=== PATIENT | female | born 1980 | race Caucasian/White ===

== ENCOUNTER 2017-10-30 00:17 | Inpatient (IN) | payer OTHER ==
[~2017-10-30] VITALS: Ht 172.7 cm; Wt 103.5 kg
[~2017-10-30 00:17] MED LIST: HYDR-3533 PO; IBUP600 PO; INDO50CA PO; PERC10TA27 PO
[2017-10-30 00:38] VITALS: BP 141/75; PULSE 95; RESP 18; TEMP 98.4; O2SAT 97
[2017-10-30] MEDS ORDERED: MORPHINE SULFATE 4 MG/ML INJ IV PUSH ONE ×2 (01:30→08:30)
[2017-10-30] MEDS ORDERED: VANCOMYCIN INJ 1,000 MG in SODIUM CHLOR 0.9% 250 ML INJ 250 ML IV ONE (01:30)
[2017-10-30] MEDS ORDERED: PIPERACIL-TAZO 3.375 GM PREMIX 50 ML IV ONE (01:30)
[2017-10-30 02:57] LABS: BASOPHIL % 0.4 % (0.0-2.0); EOSINOPHIL # 0.1 TH/MM3 (0-0.4); EOSINOPHIL % 1.4 % (0.0-4.0); HEMATOCRIT 39.1 % (35.0-46.0); HEMOGLOBIN 13.1 GM/DL (11.6-15.3); LYMPH % 20.1 % (9.0-44.0); LYMPHOCYTE # 1.9 TH/MM3 (1.0-4.8); MEAN CELL VOLUME 85.5 FL (80.0-100.0); MEAN CORPUSCULAR HEMOGLOBIN 28.7 PG (27.0-34.0); MEAN CORPUSCULAR HGB CONC 33.6 % (32.0-36.0); MEAN PLATELET VOLUME 8.4 FL (7.0-11.0); MONO % 5.1 % (0.0-8.0); MONOCYTE # 0.5 TH/MM3 (0-0.9); PLATELET COUNT 233 TH/MM3 (150-450); RED BLOOD COUNT 4.58 MIL/MM3 (4.00-5.30); RED CELL DISTRIBUTION WIDTH 13.6 % (11.6-17.2); WHITE BLOOD COUNT 9.5 TH/MM3 (4.0-11.0)
[2017-10-30 03:18] LABS: ALBUMIN 3.6 GM/DL (3.4-5.0); AST (GOT) 19 U/L (15-37); BICARBONATE 27.8 MEQ/L (21.0-32.0); BLOOD UREA NITROGEN 11 MG/DL (7-18); CALCIUM 8.7 MG/DL (8.5-10.1); CHLORIDE 106 MEQ/L (98-107); CREATININE 0.89 MG/DL (0.50-1.00); GLOMERULAR FILTRATION RATE 71 ML/MIN (>89); GLUCOSE,RANDOM 126 MG/DL (74-106); SODIUM (NA) 140 MEQ/L (136-145)
[2017-10-30 03:21] LABS: ALKALINE PHOSPHATASE 78 U/L (45-117); ALT (GPT) 32 U/L (10-53); TOTAL BILIRUBIN ADULT 0.3 MG/DL (0.2-1.0); TOTAL PROTEIN 8.4 GM/DL (6.4-8.2)
--- NOTE | 2017-10-30 03:32 | PD ---
HPI Chief Complaint: Skin Problem Time Seen by Provider: :18 Travel History International Travel<30 days: No Contact w/Intl Traveler<30days: No Traveled to known affect area: No History of Present Illness HPI Patient is a 37 year old female who comes in due to pain and swelling to her right hand. She says she has had some pain to this hand for the past 3 weeks. She says that originally she thought maybe it was a gout flare. She says that recently it has gotten much worse, more painful and more swollen. She has history of IVDA and recently relapsed, injecting herself in the area of the right hand. She denies fever or chills. She went to an OSH where she had a CT done showing an abscess and likely osteomyelitis. Severity is moderate. PFSH Past Medical History Cancer: No Cardiovascular Problems: No Diminished Hearing: No Gout: Yes (ARTHRITC) Hepatitis: Yes (C) Neurologic: No Psychiatric: No Reproductive: No Respiratory: No Immunizations Current: Yes ?: Not LMP: 10/30/17 : 2 Para: 2 Miscarriage: 1 : 1 Past Surgical History Abdominal Surgery: No Cardiac Surgery: No Genitourinary Surgery: No Gynecologic Surgery: No Thoracic Surgery: No Social History Alcohol Use: No Tobacco Use: Yes (1/2 PPD) Substance Use: Yes (COCAINE, PAIN MEDS) Allergies-Medications (Allergen,Severity, Reaction): Coded Allergies: No Known Allergies (Unverified Adverse Reaction, Unknown, 10/30/17) Reported Meds & Prescriptions Reported Meds & Active Scripts Active Percocet 10/325 (Oxycodone/Acetaminophen) Oxycodone 10/325 Acetaminophen Tab 0.5 -1 Tab PO Q4H PRN Indocin (Indomethacin) 50 Mg Cap 50 Mg PO TID Lortab 5 mg/325 mg (Hydrocodone/Acetaminophen 5 mg/325 mg) 1 Tab 1 Tab PO Q6H PRN Motrin 600 Mg Tab (Ibuprofen) 600 Mg Tab 600 Mg PO Q6H PRN Review of Systems Except as stated in HPI: all other systems reviewed are Neg General / Constitutional: No: Fever, Chills HENT: No: Headaches, Lightheadedness Cardiovascular: No: Chest Pain or Discomfort Respiratory: No: Shortness of Breath Gastrointestinal: No: Nausea, Vomiting Musculoskeletal: Positive: Edema, Pain Skin: Positive Change in Pigmentation, No Rash Neurologic: No: Weakness, Dizziness Physical Exam Narrative GENERAL: Awake and alert, in no acute distress. SKIN: Large swelling to the right hand with erythema and warmth of the entire dorsal surface of the right hand. HEAD: Atraumatic. Normocephalic. EYES: Pupils equal and round. No scleral icterus. ENT: Mucous membranes pink and moist. NECK: Trachea midline. No JVD. CARDIOVASCULAR: Regular rate and rhythm. No murmur appreciated. RESPIRATORY: No accessory muscle use. Clear to auscultation. Breath sounds equal bilaterally. MUSCULOSKELETAL: No obvious deformities. No clubbing. No cyanosis. No edema. NEUROLOGICAL: Awake and alert. No obvious cranial nerve deficits. Motor grossly within normal limits. Normal speech. PSYCHIATRIC: Appropriate mood and affect; insight and judgment normal. Data Data Last Documented VS Vital Signs Date Time Temp Pulse Resp B/P (MAP) Pulse Ox O2 Delivery O2 Flow Rate FiO2 10/30/17 00:38 98.4 95 18 141/75 (97) 97 Orders Orders Iv Access Insert/Monitor (10/30/17 01:28) Complete Blood Count With Diff (10/30/17 01:28) Comprehensive Metabolic Panel (10/30/17 01:28) Westergren Sedimentation Rate (10/30/17 01:28) Mri Hand W&W/O Contrast (10/30/17 ) Blood Culture (10/30/17 01:28) Vancomycin Inj (Vancomycin Inj) (10/30/17 01:30) Piperacil-Tazo 3.375 Gm Premix (Zosyn 3. (10/30/17 01:30) Morphine Inj (Morphine Inj) (10/30/17 01:30) Labs Laboratory Tests Test 10/30/17 02:30 White Blood Count 9.5 TH/MM3 Red Blood Count 4.58 MIL/MM3 Hemoglobin 13.1 GM/DL Hematocrit 39.1 % Mean Corpuscular Volume 85.5 FL Mean Corpuscular Hemoglobin 28.7 PG Mean Corpuscular Hemoglobin Concent 33.6 % Red Cell Distribution Width 13.6 % Platelet Count 233 TH/MM3 Mean Platelet Volume 8.4 FL Neutrophils (%) (Auto) 73.0 % Lymphocytes (%) (Auto) 20.1 % Monocytes (%) (Auto) 5.1 % Eosinophils (%) (Auto) 1.4 % Basophils (%) (Auto) 0.4 % Neutrophils # (Auto) 7.0 TH/MM3 Lymphocytes # (Auto) 1.9 TH/MM3 Monocytes # (Auto) 0.5 TH/MM3 Eosinophils # (Auto) 0.1 TH/MM3 Basophils # (Auto) 0.0 TH/MM3 CBC Comment DIFF FINAL Differential Comment Blood Urea Nitrogen 11 MG/DL Creatinine 0.89 MG/DL Random Glucose 126 MG/DL Albumin 3.6 GM/DL Calcium Level 8.7 MG/DL Aspartate Amino Transf (AST/SGOT) 19 U/L Sodium Level 140 MEQ/L Potassium Level 3.6 MEQ/L Chloride Level 106 MEQ/L Carbon Dioxide Level 27.8 MEQ/L Anion Gap 6 MEQ/L Estimat Glomerular Filtration Rate 71 ML/MIN [facility] Medical Decision Making Medical Screen Exam Complete: Yes Emergency Medical Condition: Yes Medical Record Reviewed: Yes Differential Diagnosis abscess vs cellulitis vs osteomyelitis Narrative Course Patient is a 37 year old female who comes in complaining of pain and swelling to her right hand. Exam shows large swelling and erythema to the dorsal surface of the right hand. CT from [facility] shows: "Extensive cellulitis of the wrist and hand. Several foci of gas within the subcutaneous tissue of the distal forearm. 1.9 x 3.2 x 4.7 cm abscess posterior aspect of the hand level of the fifth metacarpal. Suspected 3 x 5 cm area of low attenuation surrounding the proximal carpal row suspicious for phlegmon. Suspected multifocal osteomyelitis involving the carpal bones, most pronounced within the lunate. IV established, labs sent. Given IV antibiotics. I spoke with Dr. Jean-Baptiste who suggests admission, NPO after breakfast for OR tomorrow. MRI ordered for AM. Will be admitted for further management. Diagnosis Primary Impression: Cellulitis and abscess of hand Additional Impression: Osteomyelitis Qualified Codes: M86.9 - Osteomyelitis, unspecified Admitting Information Admitting Physician Requests: Admit Temitope Roque MD Oct 30, 2017 03:32
[2017-10-30 04:51] VITALS: BP 145/66; PULSE 74; RESP 18; TEMP 98; O2SAT 99
[2017-10-30] MEDS ORDERED: GADODIAMIDE PF 287 MG/ML 20 ML VIAL (for RAD MRI) IVCONTRAST ONE (07:50)
[2017-10-30] MEDS ORDERED: MORPHINE SULFATE 4 MG/ML INJ IV PUSH PRN (08:30)
[2017-10-30] MEDS ORDERED: ONDANSETRON ODT 4 MG TAB PO PRN (08:30)
[2017-10-30] MEDS ORDERED: ACETAMINOPHEN 325 MG TAB PO PRN (08:30)
[2017-10-30] MEDS ORDERED: VANCOMYCIN INJ 1,000 MG in SODIUM CHLOR 0.9% 250 ML INJ 250 ML IV SCH (08:30)
--- NOTE | 2017-10-30 08:38 | RADRPT ---
EXAM DATE: 10/30/2017 8:10 AM EDT AGE/SEX: 37 years / Female INDICATIONS: Abscess. CLINICAL DATA: This is the patient's initial encounter. Patient reports that signs and symptoms have been present for 2 days and indicates a pain score of 5/10. MEDICAL/SURGICAL HISTORY: None. . Knee surgery. COMPARISON: No prior exams available for comparison. TECHNIQUE: Multiplanar, multisequence MRI examination was performed without contrast and after the i ntravenous administration of 20cc ml Omniscan (gadodiamide) contrast as a single exam dose. FINDINGS: The patient moved during acquisition of the axial postcontrast enhanced T1-weighted images . There is diffusely in the subcutaneous edema. On the medial/ulnar aspect of the hand adjacent to the fifth metacarpal is a subcutaneous fluid collection containing enhancing septations and demonstrating peripheral enhancement. This abnormality measures approximately 4.8 x 2.4 x 5.0 cm. It is superficia l to the extensor tendons but does abut the extensor tendons adjacent to the fifth metacarpal. The hy perthenar muscle also demonstrates edema and enhancement. The bone marrow within the metacarpals and proximal phalanges are within normal limits. The bone karen ow signal is abnormal within the distal radius, lunate, scaphoid, and triquetral bone. There is abnor mal linear low density structure in the distal radius suggesting distal radial metaphyseal fracture. Therefore, the edema and enhancement within the adjacent carpal bones could be related to a traumatic injury. There is mild ulnar positive variance. CONCLUSION: 1. There is a rim-enhancing septated fluid collection in the subcutaneous fat of the medial/ulnar as pect of the hand. It measures 4.8 x 2.4 x 5.0 cm and has imaging features characteristic of an absces s. It is superficial to the extensor tendons but does abut the extensor tendon adjacent to the fifth metacarpal. The fifth metacarpal demonstrates normal signal without findings to indicate osteomyeliti s. There is abnormal edema and enhancement in the adjacent hyperthenar muscle. 2. Changes in the distal radius characteristic of a fracture. There is also edema and enhancement wi thin the proximal row carpal bones which is nonspecific but could be related to a traumatic injury. C onsider correlating with plain film examination. Electronically signed by: Adam Biggs MD 10/30/2017 8:37 AM EDT
[2017-10-30] MEDS ORDERED: SODIUM CHLOR 0.9% 1000 ML INJ 1,000 ML IV SCH (09:00)
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
[2017-10-30] MEDS ORDERED: Vancomycin Consult Pharmacy 1 EA OTHER SCH (09:30)
[2017-10-30] MEDS: PIPERACIL-TAZO 3.375 GM PREMIX 50 ML IV SCH ×3 (09:32→22:07)
[2017-10-30] MEDS: VANCOMYCIN 1,500 MG/NS 500 ML IV SCH ×4 (10:26→23:44)
[2017-10-30] MEDS ORDERED: PROPOFOL 200 MG/20 ML AMP IV ONE (12:00)
[2017-10-30] MEDS ORDERED: LIDOCAINE HCL 1% PF 5 ML SYRINGE OTHER ONE (12:00)
[2017-10-30] MEDS ORDERED: NEOMYCIN/POLYMYXIN 1 ML G.U. IRRIGANT ONE (12:10)
[2017-10-30 12:17] VITALS: BP 136/77; PULSE 63; RESP 16; TEMP 98.2; O2SAT 100
--- NOTE | 2017-10-30 13:01 | MB ---
cc: Jeffry Jean-Baptiste MD DATE: 10/30/2017 HISTORY OF PRESENT ILLNESS: The patient is a 37-year-old female who came in with pain and swelling of the right hand for about 2 weeks. She relapsed and was injecting Dilaudid. She does have a recent history of breaking her distal radius and was seen and treated at [place]. PAST MEDICAL HISTORY: Gout and hepatitis C. PAST SURGICAL HISTORY: Denies. SOCIAL HISTORY: She smokes tobacco, has used illicit substances. ALLERGIES: NO KNOWN DRUG ALLERGIES. MEDICATION AT HOME: Allopurinol. REVIEW OF SYSTEMS: The patient is not complaining of any fevers or chills. She is not complaining of headaches or lightheadedness. She is not complaining of any chest pain or palpitations. She is not complaining of any coughing, wheezing or shortness of breath. She is not complaining of any nausea, vomiting or diarrhea. She is not complaining of any skin lesions, rashes or eruptions, except for the right hand. She is not complaining of any weakness, dizziness, numbness or tingling. She is not complaining of any night sweats, fevers or chills. She is not complaining of any anxiety, depression, or suicidal ideations. LABORATORY DATA: MRI was reviewed. Laboratory studies revealed a white blood cell count of 9.5000, hemoglobin 13.1 g/dL, platelet count of 233,000. BUN and creatinine 11 and 0.89. PHYSICAL EXAMINATION: GENERAL: Well-developed, well-nourished, in no apparent distress. VITAL SIGNS: Temperature is 98.0, heart rate 74, respiratory rate 18, blood pressure 145/66, pulse oximetry 99% on room air. NEUROLOGIC: She is awake, alert and oriented x3, very pleasant. RESPIRATORY: Respiratory effort is normal. EXTREMITIES: Examination of right upper extremity reveals a very edematous and erythematous hand. All surfaces are soft. She is neurovascularly intact throughout. There is a large abscess dorsally. There is the slightest suggestion of lymphangitic streaking proximally on the forearm. There is no epitrochlear adenopathy. IMPRESSION: Cellulitis and abscess, right hand. PLAN: To go to the operating room for drainage of this. I discussed this with the patient. She eagerly requests that we proceed. Jeffry Daniela Jean-Baptiste MD LCB/TL , 11:52 AM , 01:00 PM
[2017-10-30] MEDS ORDERED: *morphine SULFATE 4 MG/ML PERIprocedure ONLY ONE (13:48)
[2017-10-30] MEDS ORDERED: MIDAZOLAM HCL 2 MG/2 ML VIAL ONE (13:50)
[2017-10-30] MEDS ORDERED: SODIUM CHLORIDE FLUSH PRN IV FLUSH (14:15)
--- NOTE | 2017-10-30 14:46 | MP ---
cc: Jeffry Jean-Baptiste MD DATE OF OPERATION: PREOPERATIVE DIAGNOSIS: Right hand abscess. PROCEDURE PERFORMED: Right hand incision and drainage. SURGEON: Jeffry Jean-Baptiste III, MD PROCEDURE: The patient was brought to the operating room and placed supine on the operating table. After the correct site and side of surgery were verified by members of each team in the room multiple times including the patient and myself, and after adequate general anesthesia was achieved, the right upper extremity was prepped and draped in traditional sterile surgical fashion. An incision was made over the point of maximal fluctuance on the dorsal aspect of the right hand. Cultures were obtained after a large amount of pus was encountered. The wound was explored. There was no infected rind or anything necrotic within the wound. It was then irrigated in a pulsatile fashion with saline and then medicated packing. The hand and arm were thoroughly cleansed and dried. Sterile circumferential dressing was applied. The patient was awakened from anesthesia and transported to the postanesthesia care unit awake and in stable condition at the end of the case. Sponge, needle and instrument counts were correct at the end of the case as reported by the nurses in the room. Jeffry Jean-Baptiste MD LCB/TL , 01:38 PM , 02:45 PM
[2017-10-30] MEDS ORDERED: DO NOT ADM ANY ANTICOAGULANT DRUGS PRN (15:00)
--- NOTE | 2017-10-30 15:56 | RADRPT ---
EXAM DATE: 10/30/2017 3:28 PM EDT AGE/SEX: 37 years / Female INDICATIONS: Fracture. Pain and swelling on dorsal surface of hand and wrist. CLINICAL DATA: This is the patient's subsequent encounter. Patient reports that signs and symptoms h ave been present for 1 day and indicates a pain score of 5/10. MEDICAL/SURGICAL HISTORY: None. . Knee surgery. COMPARISON: No prior exams available for comparison. FINDINGS: There is prominent soft tissue swelling about the dorsal medial aspect of the hand. There is also gau ze about the hand with multiple metallic safety pins and Cly[place] bandage clamps in place. The osseous str uctures of the hand are normal alignment. No evidence of fracture, dislocation or periosteal reaction . In lateral projection, there is questionable posterior displacement of the distal ulna. Radiocarpal alignment is maintained. CONCLUSION: 1. Prominent soft tissue swelling about the dorsal medial aspect of the hand without radiopaque fore ign body. 2. Osseous structures of the hand appear grossly intact. 3. Possible dorsal dislocation of the ulna. Electronically signed by: Yves Ardon MD 10/30/2017 3:55 PM EDT
[2017-10-30] MEDS: ACETAMINOPHEN/HYDROcodone 325 MG/7.5 MG TAB PO PRN (17:42)
[2017-10-30 17:59] VITALS: BP 128/63; PULSE 80; RESP 20; TEMP 97.9; O2SAT 98
[2017-10-30] MEDS: SODIUM CHLORIDE FLUSH BID IV FLUSH SCH (22:08)
[2017-10-30] MEDS ORDERED: MORPHINE SULFATE 4 MG/ML INJ IV ONE (23:15)
[2017-10-30 23:49] VITALS: BP 130/71; PULSE 62; RESP 19; O2SAT 98
[2017-10-31 03:14] VITALS: BP 128/74; PULSE 61; RESP 20; TEMP 98.4; O2SAT 98
[2017-10-31 04:33] VITALS: BP 123/80; PULSE 70; RESP 16; TEMP 98.8; O2SAT 99
[2017-10-31] MEDS: PIPERACIL-TAZO 3.375 GM PREMIX 50 ML IV SCH ×2 (05:30→08:15)
[2017-10-31] MEDS: ACETAMINOPHEN/HYDROcodone 325 MG/7.5 MG TAB PO PRN ×2 (08:16→21:03)
[2017-10-31] MEDS: SODIUM CHLORIDE FLUSH BID IV FLUSH SCH ×2 (08:16→22:56)
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
[2017-10-31 09:42] VITALS: BP 138/79; PULSE 75; RESP 18; TEMP 98.7; O2SAT 97
[2017-10-31] MEDS: VANCOMYCIN 1,500 MG/NS 500 ML IV SCH ×4 (10:59→22:55)
[2017-10-31 11:43] LABS: AUTOMATED NEUTROPHIL # 4.7 TH/MM3 (1.8-7.7); BASOPHIL % 0.3 % (0.0-2.0); EOSINOPHIL # 0.1 TH/MM3 (0-0.4); EOSINOPHIL % 1.5 % (0.0-4.0); HEMATOCRIT 34.9 % (35.0-46.0); HEMOGLOBIN 11.5 GM/DL (11.6-15.3); LYMPH % 22.4 % (9.0-44.0); LYMPHOCYTE # 1.5 TH/MM3 (1.0-4.8); MEAN CELL VOLUME 84.7 FL (80.0-100.0); MEAN CORPUSCULAR HEMOGLOBIN 27.9 PG (27.0-34.0); MEAN PLATELET VOLUME 8.9 FL (7.0-11.0); MONO % 3.9 % (0.0-8.0); MONOCYTE # 0.3 TH/MM3 (0-0.9); NEUT % 71.9 % (16.0-70.0); PLATELET COUNT 234 TH/MM3 (150-450); RED BLOOD COUNT 4.12 MIL/MM3 (4.00-5.30); RED CELL DISTRIBUTION WIDTH 13.4 % (11.6-17.2); WHITE BLOOD COUNT 6.6 TH/MM3 (4.0-11.0)
[2017-10-31 11:57] LABS: BICARBONATE 26.1 MEQ/L (21.0-32.0); CALCIUM 8.8 MG/DL (8.5-10.1); CREATININE 0.96 MG/DL (0.50-1.00)
--- NOTE | 2017-10-31 12:13 | HHI.PR ---
Subjective Remarks pt comfortable Objective Vital Signs Date Time Temp Pulse Resp B/P (MAP) Pulse Ox O2 Delivery O2 Flow Rate FiO2 10/31/17 09:42 98.7 75 18 138/79 (98) 97 10/31/17 04:33 98.8 70 16 123/80 (94) 99 10/31/17 03:14 98.4 61 20 128/74 (92) 98 10/30/17 23:49 62 19 130/71 (90) 98 10/30/17 17:59 97.9 80 20 128/63 (84) 98 10/30/17 13:45 97.6 67 16 134/81 (98) 99 Room Air 10/30/17 13:37 97.6 65 16 123/64 (83) 100 10/30/17 12:17 98.2 63 16 136/77 (96) 100 I/O 10/30/17 10/30/17 10/30/17 10/31/17 10/31/17 10/31/17 07:00 15:00 23:00 07:00 15:00 23:00 Intake Total 300 ml 300 ml Output Total 5 ml Balance 300 ml 295 ml Intake IV Total 300 ml 300 ml Output Estimated Blood Loss 5 ml # Voids 1 Result Diagram: 10/31/17 1100 10/31/17 1100 Objective Remarks examination of the right hand reveals redness and swelling has gone down dramatically; AROM only 25% normal, which is an improvement no purulence on packing NVI throughout Assessment and Plan Problem List: (1) Cellulitis and abscess of hand ICD Codes: L03.119 - Cellulitis of unspecified part of limb; L02.519 - Cutaneous abscess of unspecified hand Status: Acute Plan: begin packing changes as ordered continue elevation of right hand 24/7 exercise fingers every hour continue IV abx, await cultures Jeffry Jean-Baptiste III, MD Oct 31, 2017 12:13
[2017-10-31] MEDS: MORPHINE SULFATE 4 MG/ML INJ IV PUSH PRN (12:20)
[2017-10-31] MEDS ORDERED: POTASSIUM CHLORIDE 20 MEQ CONTROLLED RELEASE TAB PO ONE (12:30)
[2017-10-31 13:57] VITALS: BP 131/64; PULSE 76; RESP 15; TEMP 97.8; O2SAT 97
[2017-10-31 20:00] VITALS: BP 130/82; PULSE 77; RESP 16; TEMP 97.9; O2SAT 99
[2017-10-31] MEDS ORDERED: PHARMACY ORDERED LAB ONE (23:45)
[2017-11-01] VITALS: BP 122/71; PULSE 68; RESP 18; TEMP 98.1; O2SAT 97
[2017-11-01] MEDS: MORPHINE SULFATE 4 MG/ML INJ IV PUSH PRN ×2 (00:05→10:26)
[2017-11-01 04:00] VITALS: BP 114/64; PULSE 59; RESP 18; TEMP 97.7; O2SAT 98
[2017-11-01] MEDS: ACETAMINOPHEN/HYDROcodone 325 MG/7.5 MG TAB PO PRN (06:09)
[2017-11-01 08:11] VITALS: BP 131/90; PULSE 63; RESP 18; TEMP 98.1; O2SAT 98
[2017-11-01] MEDS ORDERED: PHARMACY ORDERED LAB ONE (09:45)
[2017-11-01] MEDS: SODIUM CHLORIDE FLUSH BID IV FLUSH SCH (10:24)
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
[2017-11-01] MEDS ORDERED: BACT800T5 PO (11:58)
[2017-11-01] MEDS ORDERED: SULFAMETHOXAZOLE-TRIMETHOPRIM DS 800-160 MG TAB PO SCH (12:00)
[2017-11-01] MEDS ORDERED: HYDR-3580 PO (12:02)
--- NOTE | 2017-11-01 12:04 | HHI.FF ---
Face to Face Verification Diagnosis: (1) Cellulitis and abscess of hand (2) Distal radius fracture, right (3) Hepatitis C Home Health Nursing Order: Wound care and dressing changes Nursing assessment with vital signs Instructions: Wound care instructions: Change packing to right hand with plain packing. Change [id number]. Cover with ABD & wrap with cling gauze. Please draw a CBC and CMP on 11/08/17, with results to Dr. Mo Berry I have seen patient Cassandra Hough on 11/01/17. My clinical findings support the need for the requested home health care services because: Infection w/ risk of complications I certify that my clinical findings support that this patient is homebound because: Post-op weakness Carol Ann Reed Nov 01, 2017 12:04 Ramos White DO Nov 01, 2017 15:29
--- NOTE | 2017-11-01 12:05 | HHI.DCPOC ---
Discharge Care Plan Diagnosis: (1) Distal radius fracture, right (2) Cellulitis and abscess of hand (3) Hepatitis C Goals to Promote Your Health * To prevent worsening of your condition and complications * To maintain your health at the optimal level Directions to Meet Your Goals Take your medications as prescribed Follow your dietary instruction Follow activity as directed Keep your appointments as scheduled Take your immunizations and boosters as scheduled If your symptoms worsen call your PCP, if no PCP go to Urgent Care Center or Emergency Room Smoking is Dangerous to Your Health. Avoid second hand smoke Call the 24-hour hour crisis hotline for domestic abuse at Carol Ann Reed Nov 01, 2017 12:05
--- NOTE | 2017-11-01 12:08 | HHI.PR ---
Subjective Remarks pt comfortable Objective Vital Signs Date Time Temp Pulse Resp B/P (MAP) Pulse Ox O2 Delivery O2 Flow Rate FiO2 11/01/17 08:11 98.1 63 18 131/90 (104) 98 11/01/17 04:00 97.7 59 18 114/64 (81) 98 11/01/17 00:00 98.1 68 18 122/71 (88) 97 10/31/17 20:00 97.9 77 16 130/82 (98) 99 10/31/17 13:57 97.8 76 15 131/64 (86) 97 I/O 10/31/17 10/31/17 10/31/17 11/01/17 11/01/17 11/01/17 07:00 15:00 23:00 07:00 15:00 23:00 Intake Total 755 ml Balance 755 ml Intake Oral 240 ml IV Total 515 ml # Voids 5 # Bowel Movements 0 Result Diagram: 10/31/17 1100 10/31/17 1100 Objective Remarks examination of the right hand reveals redness and swelling resolved; AROM is almost full; no cellulitis or edema wound is clean NVI throughout Assessment and Plan Problem List: (1) Cellulitis and abscess of hand ICD Codes: L03.119 - Cellulitis of unspecified part of limb; L02.519 - Cutaneous abscess of unspecified hand Status: Acute Plan: continue packing changes at home until closed ok to shower and get wound wet and soapy po abx x 14 days f/u 1 week in office Jeffry Jean-Baptiste III, MD Nov 01, 2017 12:08
[2017-11-01 12:11] VITALS: BP 159/87; PULSE 73; RESP 18; TEMP 98.4; O2SAT 98
== END 2017-11-01 14:55 | disposition home health service (06) | DRG 603 ==
LOC: NEPC 00:17 → NEDA 04:02 → NEPGCP 04:49 → N04A 10-31 14:49
PROVIDERS: ADMIT Hospitalist; ATTEND Hospitalist
PROC: 0H9FXZZ Drainage of Right Hand Skin, External Approach (ICD-10-PCS; principal; 2017-10-30 12:38)
DX: L02.511 Cutaneous abscess of right hand (principal); L03.113 Cellulitis of right upper limb; M10.9 Gout, unspecified; F19.10 Other psychoactive substance abuse, uncomplicated; B19.20 Unspecified viral hepatitis C without hepatic coma; M25.531 Pain in right wrist; M79.641 Pain in right hand; F17.210 Nicotine dependence, cigarettes, uncomplicated; B95.62 Methicillin resistant Staphylococcus aureus infection as the cause of diseases classified elsewhere; S52.501D Unspecified fracture of the lower end of right radius, subsequent encounter for closed fracture with routine healing; V89.2XXD Person injured in unspecified motor-vehicle accident, traffic, subsequent encounter
CPT/HCPCS: 73110; 73220; 76937; 80048; 80053; 83735; 85025; 85652; 86403; 87015; 87040; 87070; 87102; 87116; 87147; 87186; 87205; 87206; 96365; 96368; 96375; A9579; J2250; J2270; J2543; J3010; J3370; J7030; J7040; J7050